=== PATIENT | female | born 1965 | race Caucasian/White ===

== ENCOUNTER → 2020-07-15 12:09 | Outpatient (CLI) | payer OTHER, SELFPAY ==
[2020-07-15] MEDS: COVID-19 VACC #1, MRNA(MOD) 100 MCG/0.5 ML VIAL IM (12:16)
== END ==
PROVIDERS: PCP Family Medicine Geriatric Medicine; Visit Provider Internal Medicine
DX: Z23 Encounter for immunization (principal)
CPT/HCPCS: 0011A; 91301

== ENCOUNTER → 2020-08-12 12:41 | Outpatient (CLI) | payer OTHER, SELFPAY ==
[2020-08-12] MEDS: COVID-19 VACC #2, MRNA(MOD) 100 MCG/0.5 ML VIAL IM (12:55)
== END ==
PROVIDERS: PCP Family Medicine Geriatric Medicine; Visit Provider Internal Medicine
DX: Z23 Encounter for immunization (principal)
CPT/HCPCS: 0012A; 91301

== ENCOUNTER 2022-11-09 09:56 | Day surgery (SDC) | payer OTHER, SELFPAY ==
--- NOTE | 2022-11-09 | PATH_ITS ---
[facility] Accession Number: [id number] No. of containers..01 Tissue . 01 Material submitted: . rectum - RECTAL POLYP . 01 Diagnosis: Rectum Polyp, Biopsy: Hyperplastic polyp. MRV 11/13/2022 1655 Local . 01 Electronically signed: . Nancy Simpson MD, Pathologist NPI- [id number] . 01 Gross description: . RECTAL POLYP: Received in formalin is 1 fragment(s) of rao, soft tissue measuring 0.4 x 0.3 x 0.2 cm submitted entirely in 1 cassette(s) /TR 11/12/2022 1150 Local . 01 Pathologist provided ICD-10: K62.1 . 01 CPT . 651160 Specimen Comment: A courtesy copy of this report has been sent to [facility] Pathology Performed at: 01 [facility] Cytology [address] [place] [address] [id number] MD Geoffrey Trevino MD Phone: [phone]
[2022-11-09 10:28] VITALS: BP 157/86; PULSE 92; RESP 16; TEMP 36.3; O2SAT 100; BMI 30.9
[2022-11-09] MEDS: LACTATED RINGERS 1,000 ML 150 ML IV (10:37)
--- NOTE | 2022-11-09 11:52 | PM.HP.1 ---
History of Present Illness History of Present Illness Date Patient Seen: 11/09/22 Time Patient Seen: 11:52 Chief complaint: Dx Colonoscopy w/poss bx Narrative: Ms. Lazaro presents today for her 1st screening colonoscopy. She has no family history of colon cancer and no concerning symptoms no bleeding changes in bowel habits. She did have a little bit of diarrhea when she had her gallbladder out but not a lot and is not concerned about any symptoms of colon cancer. She has no other questions and would like to proceed today. [facility] Social History household members: spouse Smoking Status: Never smoker alcohol intake: never Meds Home Medications and Allergies Home Medications Medication Instructions Recorded Confirmed Type verapamil 300 mg capsule 24hr 300 mg PO QDAY #30 tabs 09/25/18 11/09/[address],ext[address]release rizatriptan 10 mg tablet 10 mg PO SEE INSTRUCTIONS #12 tabs 09/29/18 11/09/22 Rx Allergies Allergy/AdvReac Type Severity Reaction Status Date / Time chlorhexidine Allergy Intermediate Rash Verified 11/09/22 10:27 [From ChloraPrep Clear] isopropyl alcohol Allergy Intermediate Rash Verified 11/09/22 10:27 [From ChloraPrep Clear] Exam Vital Signs (past 8 hours): - 11/09/22 10:28 Temperature 97.4 F L Pulse Rate 92 H Respiratory Rate 16 Blood Pressure 157/86 H Pulse Oximetry 100 Oxygen Delivery Method Room Air Oxygen Delivery Method Room Air Const General: cooperative, healthy appearing and comfortable Orientation: oriented x3 HENMT Head: normal to inspection Eyes General: appearance normal, both eyes and all related structures Resp Effort & Inspection: normal respiratory effort and able to speak in complete sentences GI Palpation: soft and No tender Extrem General: normal to inspection Assessment & Plan Assessment and plan (1) Colon cancer screening: Status: Acute Assessment & Plan narrative: Presents today for screening colonoscopy I discussed the risks benefits and alternatives including but not limited to perforation of the colon and an incomplete exam she fully understands these risks and would like to proceed.
--- NOTE | 2022-11-09 12:35 | PM.OP.COLON ---
Operative Date/Time/Diagnoses Date of procedure: 11/09/22 Time of procedure: 12:36 Pre-op diagnosis: Colon cancer screening average risk Post-op diagnosis: same Procedure & Clinicians Study performed: Colonoscopy and biopsy Indications: Colon cancer screening Surgeon: Juhi Powell Procedure Notes Procedure in detail: Patient was taken to the endoscopy suite and placed in a left lateral decubitus position time-out was performed. With the help of anesthesiologist conscious sedation was induced and maintained and monitored throughout the case. Digital rectal exam was performed there were no masses or strictures. The colonoscope was introduced into the anal canal and advanced through to the cecum. Some abdominal pressure was required to reach the cecum but it was otherwise not difficult. A photograph of the appendiceal orifice was obtained. The prep was poor it was a [place] bowel prep score of 1. Several photographs were obtained to document the condition prep. Several minutes were spent with irrigating and suctioning in order to obtain as good of an exam as possible. The total withdrawal time was17 minutes. There was 1 small rectal polyp that was seen and removed. The exam was limited for the sake of removing small polyps because of the prep. For this reason I would recommend a 3-5 year follow-up. There was no large polyp or lesion. Specimen(s): other (Small rectal polyp) Post-procedure Recommendations: Colonoscopy in 5 years
[2022-11-09 12:37] VITALS: BP 134/82; PULSE 77; RESP 14; TEMP 36.1; O2SAT 98
[2022-11-09 12:42] VITALS: BP 120/77; PULSE 82; RESP 16; O2SAT 99
[2022-11-09 12:47] VITALS: BP 134/69; PULSE 78; RESP 16; O2SAT 99
[2022-11-09 12:52] VITALS: BP 136/81; PULSE 81; RESP 18; O2SAT 97
[2022-11-09 12:56] VITALS: BP 131/84; PULSE 78; RESP 16; TEMP 36.7; O2SAT 99
== END 2022-11-09 13:04 | disposition home or self-care (01) ==
PROVIDERS: PCP Physician Assistant Medical; Referring Provider Surgery; Visit Provider Surgery
PROC: 0DJD8ZZ Inspection of Lower Intestinal Tract, Via Natural or Artificial Opening Endoscopic (ICD-10-PCS; CPT 45378; principal; 2022-11-09 11:45)
DX: Z12.11 Encounter for screening for malignant neoplasm of colon (principal); K62.1 Rectal polyp
CPT/HCPCS: 45380; J2704